=== PATIENT | female | born 1935 | race Caucasian/White ===

== ENCOUNTER 2016-07-20 09:45 | Day surgery (SDC) | payer MEDICARE, BC ==
[~2016-07-20 09:45] MED LIST: ANALGESIC TOP; ARICEPT10 PO; ASAB PO; BENTYL10 PO; BENTYL20 PO; COREG3 PO; DIOV160 PO; DIOVAN HC1 PO; DIOVAN HC2 PO; DIOVAN HCT320 MG/25 PO; EFFIENT10 PO; KDUR20 PO; KLOR-CON 1010 MEQ PO; KLOR-CON M2020 MEQ PO; KLOR-CON20 MEQ PO; MCZ25 PO; NASAL SPRAY NAS; NORV10 PO; PRILO PO; REST75 PO; TUMSROLL PO; VESICARE10 MG PO; VICODINTAB PO; ZOL100 PO; [UNRECOGNIZED DRUG - OTHER] PO
[2016-07-22] MEDS ORDERED: K500 PO (13:35)
== END 2016-07-20 23:59 | disposition home or self-care (01) ==
LOC: DMU 09:45
PROC: 0FC98ZZ Extirpation of Matter from Common Bile Duct, Via Natural or Artificial Opening Endoscopic (ICD-10-PCS; principal; 2016-07-20)
DX: K80.50 Calculus of bile duct without cholangitis or cholecystitis without obstruction (principal)
CPT/HCPCS: 74330; C1769; J0330; J1610; J2405

== ENCOUNTER 2016-07-26 09:13 | Day surgery (SDC) | payer MEDICARE, BC ==
[2016-07-23 09:49] LABS: HEMATOCRIT 41.4 % (36.0-48.0); HEMOGLOBIN 14.2 g/dL (12.0-16.0)
[2016-07-23 10:08] LABS: A/G RATIO 0.8 (0.7-1.9); ALBUMIN 3.5 G/DL (3.5-5.0); ALKALINE PHOSPHATASE 82 U/L (45-117); BUN (BLOOD UREA NITROGEN) 14 MG/DL (6-23); CALCIUM, SERUM 9.1 MG/DL (8.5-10.4); CHLORIDE, SERUM 102 MMOL/L (96-112); CO2 (CARBON DIOXIDE) 31 MMOL/L (24-34); CREATININE 0.92 MG/DL (0.55-1.02); GFR AFRICAN AMERICAN 69 ML/MIN (>=60); GFR NON AFRICAN AMERICAN 60 ML/MIN (>=60); GLOBULIN 4.2 G/DL (2.5-4.1); GLUCOSE, SERUM 104 MG/DL (60-99); POTASSIUM, SERUM 3.1 MMOL/L (3.5-5.3); SGOT(AST) 18 U/L (5-40); SGPT(ALT) 21 U/L (5-65); SODIUM, SERUM 141 MMOL/L (135-148); TOTAL BILIRUBIN 0.5 MG/DL (0-1.2); TOTAL PROTEIN 7.7 G/DL (6.0-8.5)
--- NOTE | ~2016-07-26 | OP ---
Record Of Operation [facility] [address] [place]. [address] NAME: ELIGIO SON : 39 STATUS : [facility]#: [id number] AGE: 80 ADM/REG DATE : 07/26/16 MR#: [id number] REPORT SERV DATE: 07/26/16 DICTATED BY: JOE REYES DATE: 07/26/16 REPORT STATUS : Draft TRANSCRIBED BY: MODL DATE: 07/26/16 DATE OF PROCEDURE: 07/26/2016 PREOPERATIVE DIAGNOSES: 1. Chronic cholecystitis with cholelithiasis. 2. History of choledocholithiasis status post ERCP with stone extraction six days ago. POSTOPERATIVE DIAGNOSES: 1. Chronic cholecystitis with cholelithiasis. 2. History of choledocholithiasis status post ERCP with stone extraction six days ago. PROCEDURE: Laparoscopic cholecystectomy with intraoperative cholangiogram. SURGEON: Joe eRyes M.D. DESCRIPTION OF OPERATIVE PROCEDURE: The patient was brought to the operating suite, placed in the supine position, underwent satisfactory general endotracheal anesthesia without incident. Skin of the abdomen was scrubbed, prepped, and draped in usual sterile fashion. Marcaine 0.5% with epinephrine was utilized as supplemental local anesthesia. Initially, an infraumbilical incision was performed dissecting through the skin and subcutaneous tissue to the umbilical fascia. This was grasped with a Denisa clamp and elevated, and a disposable Veress insufflation needle was inserted through the umbilical fascia into the peritoneal cavity. Intraperitoneal tip location was ascertained using the saline hanging drop method, following which CO2 was insufflated for pressures of 15 mmHg throughout the case. After adequate insufflation pressure achieved, Veress needle was removed, disposable bladed shielded 11-mm trocar inserted through the umbilical fascia into the peritoneal cavity. Following which, a rigid forward-viewing 10-mm laparoscope was inserted. Visualization of the intraabdominal parietes revealed no evidence of injury from initial insufflation or puncture. A cursory examination of the pelvis was normal. Attention was turned to the upper abdomen, where an additional 5-mm trocar was placed to the right of the falciform ligament. Then, an additional grasping instrument was inserted through the umbilical fascia next to the umbilical trocar. The fundus and body of the gallbladder were grasped and elevated. Dissection of triangle of Calot was successful in identifying and skeletonizing the cystic duct and cystic duct common duct junction as well as the cystic artery. A single locking clip was placed on the gallbladder side of the cystic duct and a small enterotomy was made in the duct. Bile was milked retrograde. A percutaneously introduced cholangio-sheath was next inserted and saline flush sterile cholangiocath was advanced down the sheath and advanced into the enterotomy in the cystic duct under continuous irrigation and retained there with a Weck polymer clip system. Record Of Operation [address] [address] NAME: ELIGIO SON : 39 STATUS : [facility] [place] PAT#: [id number] AGE: 80 ADM/REG DATE : 07/26/16 MR#: [id number] REPORT SERV DATE: 07/26/16 DICTATED BY: JOE REYES DATE: 07/26/16 REPORT STATUS : Draft TRANSCRIBED BY: RADHA DATE: 07/26/16 Sequential fluoroscopic intraoperative cholangiography showed both intra and extrahepatic biliary ductal dilatation. However, there was no evidence of filling defects nor was any major apparent ductal anatomy and there was free spillage of dye into the duodenum. Next, the clip was removed and the cholangio-sheath was removed and then the cystic duct was secured with three Weck 5-mm polymer clips and divided. Likewise, the cystic artery was controlled and divided and then using spatula cautery dissection, the gallbladder was removed from the subhepatic space and hemostasis was assured. Next, the camera was switched to the 5-mm epigastric port. The gallbladder was grasped by its neck and withdrawn through the umbilical port and removed. It was found to contain sludge and stones. CO2 was allowed to egress from peritoneal cavity. The umbilicus was closed with [id number] suture of 0 Vicryl. Subcutaneous tissue was closed with interrupted 3-0 Vicryl, running subcuticular stitch of 4-0 Vicryl for the skin. Dermabond skin adhesive placed. The patient tolerated the procedure well and was returned to PACU in stable condition. At the termination of procedure, sponge, needle, lap, and instrument counts were correct x3. ESTIMATED BLOOD LOSS: Less than 10-15 mL. WR/MODL Joe Reyes M.D. / [id number] CC: Ariella Helms PAUL E
[~2016-07-26 09:13] MED LIST changes: +K500 PO
== END 2016-07-26 18:27 | disposition home or self-care (01) ==
LOC: SDC 09:13
PROVIDERS: Specialist
PROC: BF12YZZ Fluoroscopy of Gallbladder using Other Contrast (ICD-10-PCS; 2016-07-26)
PROC: 0FT44ZZ Resection of Gallbladder, Percutaneous Endoscopic Approach (ICD-10-PCS; principal; 2016-07-26 10:15)
DX: K80.10 Calculus of gallbladder with chronic cholecystitis without obstruction (principal); I10 Essential (primary) hypertension; M19.90 Unspecified osteoarthritis, unspecified site; I25.10 Atherosclerotic heart disease of native coronary artery without angina pectoris; K21.9 Gastro-esophageal reflux disease without esophagitis; Z87.891 Personal history of nicotine dependence; D64.9 Anemia, unspecified; Z90.710 Acquired absence of both cervix and uterus; Z98.890 Other specified postprocedural states
CPT/HCPCS: 74300; 76000; 80053; 85014; 85018; 88304; 88341; 88342; 93005; A9270-GY; J0690; J1170; J2405; J2710; J3010; Q9967